=== PATIENT | male | born 1990 | race African-American/Black ===

== ENCOUNTER 2016-10-03 23:36 | Emergency (ER) | payer OTHER ==
[~2016-10-03] VITALS: Ht 188 cm; Wt 91.9 kg
[~2016-10-03 23:36] MED LIST: ALBUTEROL; ALBUTEROL SULF8.5 GM IH; ATIVAN0.5 MG PO; FLOVENT 44120 INHALA IH; PREDNISONE20 MG PO; PROZAC10 MG PO; VENTOLIN17 GM IH
[2016-10-04] MEDS ORDERED: ALLEGRA-D 121 TABLET PO (01:28)
[2016-10-04] MEDS ORDERED: TYLENOL WITH C1 EACH PO (01:28)
[2016-10-04] MEDS ORDERED: AUGMENTIN875 MG PO (01:28)
[2016-10-04 01:46] VITALS: BP 144/81
== END 2016-10-04 01:48 | disposition home or self-care (01) ==
LOC: EME 23:36
DX: J01.90 Acute sinusitis, unspecified (principal)
CPT/HCPCS: 99281; 99283

== ENCOUNTER 2017-05-14 18:25 | Emergency (ER) | payer OTHER ==
[~2017-05-14] VITALS: Ht 188 cm; Wt 92.7 kg
[~2017-05-14 18:25] MED LIST changes: +ALLEGRA-D 121 TABLET PO; +AUGMENTIN875 MG PO; +TYLENOL WITH C1 EACH PO
[2017-05-14 19:42] LABS: AMPHETAMINE NEGATIVE (500 ng/mL); BARBITURATES NEGATIVE (200 ng/mL); BENZODIAZEPINES NEGATIVE (150 ng/mL); COCAINE NEGATIVE (150 ng/mL); INTERNAL CONTROLS VALID? YES; METHADONE NEGATIVE (200 ng/mL); METHAMPHETAMINE NEGATIVE (500 ng/mL); OPIATES (MORPHINE) NEGATIVE (100 ng/mL); OXYCODONE NEGATIVE (100 ng/mL); PHENCYCLIDINE NEGATIVE (25 ng/mL); PROPOXYPHENE NEGATIVE (300 ng/mL); THC CANNABINOIDS NEGATIVE (50 ng/mL); TRICYCLIC ANTIDEPRESSANTS NEGATIVE (300 ng/mL)
[2017-05-14 19:43] LABS: HEMATOCRIT 39.3 % (38.0-50.0); MCH 29.9 PG (29.0-34.0); MCHC 34.6 G/DL (30.0-36.0); MCV 86.4 FL (86-99); MEAN PLAT.VOLUME 9.4 uM^3 (9.0-12.4); PLATELET COUNT 184 K/uL (156-360); RBC DIS.WIDTH-CV 11.8 % (11.8-14.6); RBC DIS.WIDTH-SD 37.5 % (39-53); RED BLOOD COUNT 4.55 M/uL (4.00-5.50); WHITE BLOOD COUNT 8.1 K/uL (4.1-10.2)
[2017-05-14 19:50] LABS: CHLORIDE 103 mEq/L (99-109); POTASSIUM 3.3 mEq/L (3.7-5.4); SODIUM 137 mEq/L (136-147)
[2017-05-14 19:52] LABS: GLUCOSE 105 mg/dL (70-99)
[2017-05-14 19:54] LABS: ANION GAP 8 MEQ/L (2-14)
[2017-05-14 19:56] LABS: GFR ESTIMATE (CALCULATED) > 59 mL/min/ (58.99-99999)
[2017-05-14 19:57] LABS: UREA NITROGEN (BUN) 10 mg/dL (9-23)
[2017-05-14 20:04] LABS: TROP-I INTERPRETATION NEGATIVE; TROPONIN-I < 0.01 ng/mL (0.0-0.30)
[2017-05-14 20:16] LABS: ADD MIUA? YES; BILIRUBIN NEGATIVE; BLOOD SMALL; COLOR STRAW ((YELLOW)); GLUCOSE (STRIP) NEGATIVE; KETONES 5; LEUKOCYTES NEGATIVE; NITRITE NEGATIVE; PROTEIN (STRIP) NEGATIVE; SPECIFIC GRAVITY 1.009 (1.000-1.030); UROBILINOGEN 0.2 MG/DL (0.2-1.0)
[2017-05-14 20:18] LABS: TOTAL BILIRUBIN 1.1 mg/dL (0.0-1.0)
[2017-05-14 20:19] LABS: ALKALINE PHOSPHATASE 59 IU/L (3-129)
[2017-05-14 20:20] LABS: BACTERIA NONE SEEN /HPF; EPITHELIAL CELLS NONE SEEN /HPF; MUCUS TRACE /LPF; RED BLOOD CELLS 0-5 /HPF (0-5); WHITE BLOOD CELLS 0-5 /HPF (0-5)
[2017-05-14 20:21] LABS: DIRECT BILIRUBIN 0.4 mg/dL (0.0-0.3)
[2017-05-14 20:22] LABS: CREATINE KINASE 285 IU/L (1-294); LIPASE 12 U/L (1.0-51.0)
[2017-05-14] MEDS ORDERED: ZOFRAN ODT4 MG PO (21:35)
[2017-05-14] MEDS ORDERED: FIORICET 50-301 EAC1 PO (21:35)
[2017-05-14] MEDS ORDERED: MOTRIN800 MG PO (21:35)
[2017-05-14 21:51] VITALS: BP 125/60
== END 2017-05-14 21:53 | disposition home or self-care (01) ==
LOC: EME 18:25
PROVIDERS: Physician Assistant
DX: B34.9 Viral infection, unspecified (principal); E86.0 Dehydration; G43.909 Migraine, unspecified, not intractable, without status migrainosus; J45.909 Unspecified asthma, uncomplicated
CPT/HCPCS: 71020; 80048; 80076; 81003; 82550; 83690; 84484; 85027; 87502; 93005; 99281; 99285; J1200; J1885; J2765; J7030